=== PATIENT | female | born 1940 | race Caucasian/White ===

== ENCOUNTER 2024-07-26 10:07 | Day surgery (SDC) | payer MEDICARE, OTHER, SELFPAY ==
[2024-07-26] VITALS (29 sets, daily range): BP systolic 130–174; BP diastolic 59–116
[2024-07-26 11:10] LABS: INR 1.01; PT 13.3 Sec (11.4-14.6)
[2024-07-26 11:11] LABS: APTT 25.5 Sec (23.4-35.0)
[2024-07-26 11:34] LABS: Hematocrit 35.8 % (37.0-47.0); Hemoglobin 12.5 g/dL (12.0-16.0); Mean Corp Hgb Conc. 34.9 g/dL (33.0-37.0); Mean Corpuscular Hgb 32.1 pg (27.0-31.0); Mean Platelet Volume 8.6 fL (7.4-10.4); Platelet Count 321 10^3/uL (130-400); Red Blood Cell Count 3.89 10^6/uL (4.20-5.40); White Blood Cell Count 8.8 10^3/uL (4.8-10.8)
[2024-07-26] MEDS: NSS 500 IV (11:35)
[2024-07-26 11:41] LABS: Glucose - Point of Care 148 mg/dl (70-99)
[2024-07-26 11:47] LABS: Blood Urea Nitrogen 21 mg/dl (7-17); Calcium 10.4 mg/dl (8.4-10.2); Carbon Dioxide 23 mmol/L (22-30); Chloride 95 mmol/L (98-107); Estimated Creatinine Clearance 42 ml/min; Glucose 163 mg/dl (70-99); Potassium 3.8 mmol/L (3.5-5.1); Sodium 134 mmol/L (135-145); eGFR > 60.00
--- NOTE | 2024-07-26 12:33 | W.SUR.PREOP ---
Pre-Operative Surgical Note
-
I have examined this patient prior to the performance of the scheduled procedure.
The patient's condition is unchanged from the time of the current History and
Physical and the patient is able to undergo the scheduled procedure.
--- NOTE | 2024-07-26 13:47 | W.SUR.POST ---
Surgical Immediate Post Op
Note
Pre Op Diagnosis: PAD
Post Op Diagnosis: PAD
Procedure Performed: LLE arteriogram, left above and behind knee popliteal artery balloon angioplasty and stent placement x2 overlapping
Primary Surgeon: Dylan
Anesthesia: local and sedation
Estimated Blood Loss: <2cc
Fluids: see anesthesia flowsheet
Drains/Shunts: none
Specimens/Cultures: none
Doppler/Duplex/Angio (Y/N): Y
Complications: none
Operative Findings: palpable pulse left DP
[2024-07-26 14:20] LABS: ALT (SGPT) 19 U/L (0-35); AST (SGOT) 28 U/L (14-36); Albumin 4.8 g/dl (3.5-5.0); Alkaline Phosphatase 158 U/L (38-126); Direct Bilirubin 0.3 mg/dl (0.0-0.4); Total Bilirubin 0.8 mg/dl (0.2-1.3)
[2024-07-26] MEDS: MORPHINE SULFATE 1 MG IV (14:26)
[2024-07-26] MEDS: PLAVIX 300 MG PO (14:34)
[2024-07-26 14:52] LABS: Glucose - Point of Care 141 mg/dl (70-99)
[2024-07-26] MEDS: NSS 1000 IV (14:56)
[2024-07-26 16:46] LABS: Glucose - Point of Care 138 mg/dl (70-99)
--- NOTE | 2024-07-26 17:43 | PTCARENOTE ---
Received patient from vascular lab with at bedside. R groin dressing CDI with no evidence of hematoma. Bilateral DP pulses palpable. SR on the monitor and 96% on room air. Instructed patient on activity restrictions and expected ambulation
time, verbalizes understanding. Patient is expecting discharge at 20:30. No complaints from pt at this time.
--- NOTE | 2024-07-26 21:35 | PTCARENOTE ---
R groin site CDI following ambulation and bedrest duration. Pedal pulses palpable. Ambulated in room as a stand by assist w/ SPC. provided with a copy of discharge instructions. IV and tele pack removed. RN assisted pt getting dressed. D/c'd
with via wheelchair with her SPC
--- NOTE | 2024-07-27 07:41 | OR.RPT ---
Operative Report
Operative Report
PROCEDURE DATE: 07/26/2024
Preoperative diagnosis: Peripheral arterial disease with significant left lower extremity claudication, and likely ischemic rest pain.
Postoperative diagnosis: Same
Procedure:
1. Duplex assisted right common femoral artery cannulation.
2. Aortogram and pelvic angiogram.
3. Left lower extremity arteriogram with third order vessel catheterization of left peroneal artery via right common femoral artery puncture.
4. Primary placement of Cook Zilver PTX drug-eluting stents overlapping in above-knee popliteal artery with 6 mm x 6 cm and 6 mm x 4 cm stents.
5. Right femoral angiogram.
6. Supervision and interpretation.
Surgeon: Dylan
Teacher Education Instructor: None
Complications: None
Anesthesia: Local, sedation
Fluoroscopy:
7.8 min
19 mGy
5.7 Gy.cm2
Indications for procedure:
Severe peripheral arterial disease with nighttime left heel pain, relatively constant. In addition significant claudication. Risk/benefit/alternatives of angiography fully discussed. Patient understood all wish to proceed.
Description of procedure:
Patient was identified, brought to the operating room. Placed on the table in the supine position. After the adequate administration of anesthesia, the patient was prepped and draped in the standard surgical fashion. A standard preoperative
timeout was undertaken and everybody was in agreement with the plan.
The right common femoral artery was accessed with a micropuncture kit under direct duplex ultrasound guidance. A 5 [place] sheath was then advanced over a 0.035 inch wire, and a soliz's hook catheter was advanced into the abdominal aorta.
Aortogram and pelvic angiogram was obtained. Findings as follows:
Infrarenal aorta: Patent distal infrarenal aorta with no significant stenosis. Mild tortuosity noted.
Right common iliac artery: Patent with no significant stenosis.
Right external iliac artery: Patent with no significant stenosis.
Left common iliac artery: Tortuous but patent with no significant stenosis.
Left external iliac artery: Patent with no significant stenosis.
Using a floppy angled hydrophilic wire, the left common femoral artery and proximal SFA were cannulated and the catheter was advanced. Left lower extremity arteriogram was obtained. Findings as follows:
Common femoral artery: Patent with no significant stenosis.
Profunda femoris artery: Patent with no significant stenosis.
Superficial femoral artery: Patent with no significant stenosis.
Popliteal artery: Occlusion in the above-knee popliteal artery for about 1 to 2 cm and then diseased reconstituted flow for another 1 to 2 cm and then hinduism of more normal flow lumen, though albeit with minor stenosis/luminal irregularities
into the below the knee popliteal segment.
Anterior tibial artery: Patent, dominant runoff vessel to the foot. No significant stenosis. Perhaps very mild stenosis at its origin at most.
Tibial peroneal trunk: Severely diseased with severe stenosis
Peroneal artery: Severely diseased with stenoses/occlusions, and minimal flow throughout its entirety.
Posterior tibial artery: Chronically occluded.
At this point I selectively cannulated the superficial femoral artery and exchanged for a Storq wire and then an up and over 6 [place] sheath. The patient was given an appropriate dose of heparin. Next under roadmap assisted guidance, and using a
flopping of hydrophilic wire and a CXI catheter, I traversed the popliteal artery occlusion and stenosis initially with some difficulty but then was able to pass relatively easily. My catheter past also relatively in a straightforward fashion. I
was able to cannulate the peroneal artery and therefore advance my catheter and then exchanged back for a Storq wire. Now, I elected to primarily stent the popliteal lesion above the knee given severity of stenosis, and some concern that there may
have been some thrombotic material in there (chronic thrombus though and I was less worried about embolization). Therefore, at this point I used a Cook Zilver PTX 6 mm x 6 cm stent. This was positioned and then on sheath. When it unsheathed it
did lurch forward slightly (distally). Therefore I felt I needed to place an additional stent to make sure to land in healthy popliteal artery proximally. I therefore overlapped with a 6 mm x 4 cm Cook Zilver PTX stent. The stents were then post
angioplastied with a 5 mm balloon. Completion angiogram demonstrated excellent result with no residual stenosis and brisk flow into the runoff. At this point is very satisfied. I withdrew my sheath to the right external iliac artery. Right
femoral angiogram demonstrated a good puncture in the right common femoral artery. There was a high bifurcation, but the puncture was safe in the common femoral artery over the femoral head. The wires and catheters were withdrawn. The patient was
transported to the recovery room where the sheath was withdrawn and manual pressure was applied. Full hemostasis was achieved.
The patient tolerated procedure well. She had a palpable left DP pulse upon completion.
== END 2024-07-26 21:40 | disposition home or self-care (01) ==
LOC: CATH 10:07
PROVIDERS: ATTENDING PHYSICIAN Surgery Vascular Surgery; FAMILY PHYSICIAN Family Medicine; OTHER PHYSICIAN Internal Medicine Cardiovascular Disease
DX: I70.222 Atherosclerosis of native arteries of extremities with rest pain, left leg (principal); I11.0 Hypertensive heart disease with heart failure; I50.9 Heart failure, unspecified; E11.9 Type 2 diabetes mellitus without complications; Z79.84 Long term (current) use of oral hypoglycemic drugs; Z79.02 Long term (current) use of antithrombotics/antiplatelets
CPT/HCPCS: 37226; C1769; C1894; C1725; C1887; 75625; 75716; 80053; 82248; 82962; 85027; 85610; 85730; 86850; 86900; 86901; 93005; C1874; Q9967

== ENCOUNTER → 2024-08-27 13:36 | Outpatient (REF) | payer MEDICARE, OTHER, SELFPAY | LOC: RAD 13:36 | PROVIDERS: ATTENDING PHYSICIAN Surgery Vascular Surgery; FAMILY PHYSICIAN Family Medicine | DX: I73.9 Peripheral vascular disease, unspecified (principal) | CPT/HCPCS: 93922; 93925 ==

== ENCOUNTER 2025-01-30 05:51 | Inpatient (IN) | payer MEDICARE, OTHER, SELFPAY ==
[2025-01-23 11:14] VITALS: BMI 19.8
[2025-01-23 11:39] LABS: % Basophils 0.3 % (0-2); % Eosinophils 0.7 % (0-6); % Immature Granulocytes 0.3 % (0-0.5); % Lymphocytes 27.8 % (20.5-51.1); % Monocytes 7.8 % (1.7-9.3); % Neutrophils 63.1 % (42.2-75.2); Absolute Eosinophils 0.1 10^3/uL (0-0.7); Absolute Lymphocytes 2.1 10^3/uL (1.2-3.4); Absolute Monocytes 0.6 10^3/uL (0.1-0.6); Absolute Neutrophils 4.8 10^3/uL (1.4-6.5); Hematocrit 36.9 % (37.0-47.0); Hemoglobin 12.4 g/dL (12.0-16.0); Mean Corp Hgb Conc. 33.6 g/dL (33.0-37.0); Mean Corpuscular Hgb 32.6 pg (27.0-31.0); Mean Corpuscular Volume 97.1 fL (81.0-99.0); Nucleated Red Blood Cells % 0 %; Platelet Count 310 10^3/uL (130-400); Red Cell Dist. Width 14.6 % (11.5-14.5); White Blood Cell Count 7.7 10^3/uL (4.8-10.8)
[2025-01-23 11:53] LABS: Blood Urea Nitrogen 23 mg/dl (7-17); Calcium 10.3 mg/dl (8.4-10.2); Carbon Dioxide 31 mmol/L (22-30); Chloride 101 mmol/L (98-107); Estimated Creatinine Clearance 29 ml/min; Glucose 89 mg/dl (70-99); Sodium 139 mmol/L (135-145); eGFR > 60.00
[2025-01-23 12:06] LABS: APTT 26.1 Sec (23.4-35.0); INR 0.93; PT 12.9 Sec (11.4-14.6)
[2025-01-30] VITALS (7 sets, daily range): BP systolic 124–143; BP diastolic 50–71; BMI 19.5
[2025-01-30 07:19] LABS: Glucose - Point of Care 168 mg/dl (70-99)
[2025-01-30] MEDS: BACTROBAN NASAL 1 GRAM NASAL (07:22)
[2025-01-30] MEDS: PERIDEX 0.12% ORAL RINSE 15 ML PO (07:23)
[2025-01-30 09:49] LABS: Glucose - Point of Care 159 mg/dl (70-99)
[2025-01-30 12:02] LABS: Glucose - Point of Care 194 mg/dl (70-99)
[2025-01-30 12:25] LABS: Hematocrit 31.7 % (37.0-47.0); Hemoglobin 10.6 g/dL (12.0-16.0); Mean Corp Hgb Conc. 33.4 g/dL (33.0-37.0); Mean Corpuscular Hgb 32.3 pg (27.0-31.0); Mean Corpuscular Volume 96.6 fL (81.0-99.0); Mean Platelet Volume 8.8 fL (7.4-10.4); Platelet Count 261 10^3/uL (130-400); Red Blood Cell Count 3.28 10^6/uL (4.20-5.40); White Blood Cell Count 10.5 10^3/uL (4.8-10.8)
--- NOTE | 2025-01-30 12:30 | W.SUR.POST ---
Surgical Immediate Post Op
Note
Pre Op Diagnosis: PAD
Post Op Diagnosis: PAD
Procedure Performed: Left SFA to AT bypass with GSV
Primary Surgeon: Dylan
Assist: Edyta AUGUSTE
Anesthesia: General
Estimated Blood Loss: 30cc
Fluids: See anesthesia flow sheet
Drains/Shunts: none
Specimens/Cultures: none
Doppler/Duplex/Angio (Y/N): Y
Complications: none
Operative Findings: Palp DP upon completion
[2025-01-30 12:31] LABS: Blood Urea Nitrogen 16 mg/dl (7-17); Calcium 8.8 mg/dl (8.4-10.2); Carbon Dioxide 25 mmol/L (22-30); Chloride 102 mmol/L (98-107); Estimated Creatinine Clearance 39 ml/min; Glucose 206 mg/dl (70-99); Sodium 134 mmol/L (135-145); eGFR > 60.00
[2025-01-30] MEDS: MORPHINE SULFATE 1 MG IV (12:44)
[2025-01-30] MEDS: DILAUDID 0.25 MG IV (13:12)
[2025-01-30] MEDS: NSS 1000 IV (13:39)
[2025-01-30 14:04] LABS: Glucose - Point of Care 212 mg/dl (70-99)
[2025-01-30] MEDS: NOVOLOG FLEXPEN-MODERATE RESISTANCE 3 UNITS SC (14:44)
--- NOTE | 2025-01-30 14:47 | CON.INTV ---
Consultation
Consultation Request
Date/Time Consultation Requested: 01/30
Date/Time Consultation Performed: 01/30
Reason for Consultation: Critical care
Medical History
-
History of Present Illness:
History obtained from the patient and reviewing hospital records. at bedside as well. 84-year-old female with history of peripheral arterial disease, left lower extremity overlapping stent placement July 2024, hypertension,
hyperlipidemia, diabetes presents with increased left leg pain. Workup revealed occluded popliteal artery stent. She is presently status post left SFA to AT bypass, minimal blood loss. Palpable DP upon complication. Presently patient is without
significant discomfort except mild left foot pain. We are asked to help from critical care standpoint
Patient does not take any antiplatelet therapy, blood thinners as an outpatient
Of note, patient is not a great historian, denied any medical history including diabetes as did at the bedside
.
PMH: Hypertension, hyperlipidemia, peripheral arterial disease with history of left lower extremity popliteal stent 2023, diabetes, macular degeneration, history of heart failure, osteoporosis
Past Medical History
Past Medical History: None (See above)
Past Surgical History: None (See above )
Social History
Tobacco: Non-smoker
Alcohol: None
Drug: None
Personal:
Living: With Family
Employment: Retired
Family History
Family History: Other (Negative for lung disease, lung cancer. Mother with history of head and neck cancer. 2 sons, healthy)
Allergies / Home Medications
Allergies
Allergy/AdvReac Type Severity Reaction Status Date / Time
No Known Allergies Allergy Verified 01/21/25 11:53
Home Medications
�Medication �Instructions �Recorded �Confirmed �Last Taken �Type
Chlorfresh 1 tab PO BID 07/25/24 01/30/25 01/29/25 18:00 History
Fish Oil 1,290 mg PO DAILY@1200 07/25/24 01/30/25 01/29/25 History
Glucamin & Fiber 1 cap PO BID@1200,1800 07/25/24 01/30/25 01/29/25 18:00 History
Probiotic 1 cap PO BID@1200,1800 07/25/24 01/30/25 01/29/25 History
Tri-Iodin 1 cap PO BID@1200,1800 07/25/24 01/30/25 01/29/25 18:00 History
alpha lipoic acid 600 mg tablet 600 mg PO BID 07/25/24 01/30/25 01/29/25 18:00 History
benazepril 20 mg tablet 20 mg PO BID 07/25/24 01/30/25 01/29/25 18:00 History
berberine chloride 500 mg capsule 500 mg PO BID@1200,1800 07/25/24 01/30/25 01/29/25 18:00 History
biotin 5 mg tablet 5 mg PO DAILY 07/25/24 01/30/25 01/29/25 10:00 History
cholecalciferol (vitamin D3) 50 50 mcg PO DAILY ##0 07/25/24 01/30/25 01/29/25 10:00 History
mcg (2,000 unit) capsule (Vitamin
D3)
cinnamon bark extract 1 tab PO BID@1200,1800 07/25/24 01/30/25 01/29/25 18:00 History
clonidine HCl 0.1 mg tablet 0.1 mg PO 07/25/24 01/30/25 01/29/25 22:00 History
coenzyme Q10 100 mg capsule 300 mg PO QPM 07/25/24 01/30/25 01/29/25 History
(CoQ-10)
cyanocobalamin (vitamin B-12) 2,500 mcg sublingual QPM 07/25/24 01/30/25 01/29/25 19:00 History
2,500 mcg sublingual tablet
(Vitamin B-12)
digestive enzymes 1 tab PO BID@1200,1800 07/25/24 01/30/25 01/29/25 18:00 History
diltiazem HCl 300 mg capsule,24 300 mg PO HS 07/25/24 01/30/25 01/29/25 18:00 History
hr,extended release (Tiadylt ER)
empagliflozin 25 mg tablet 25 mg PO QPM 07/25/24 01/30/25 01/29/25 History
(Jardiance)
glipizide 5 mg tablet 5 mg PO BID 07/25/24 01/30/25 01/29/25 18:00 History
hydrochlorothiazide 25 mg tablet 25 mg PO DAILY 07/25/24 01/30/25 01/29/25 10:00 History
magnesium 200 mg tablet 400 mg PO BID@1200,1800 07/25/24 01/30/25 01/29/25 18:00 History
melatonin 3 mg tablet 3 mg PO HS PRN Insomnia 07/25/24 01/30/25 2 Weeks Ago History
~07/12/24
milk thistle 500 mg capsule 1,000 mg PO BID@1200,1800 07/25/24 01/30/25 01/29/25 18:00 History
vitamin A-vitamin C-vit E-min 1 tab PO BID@1200,1800 07/25/24 01/30/25 01/29/25 History
tablet
vitamin K2 1 tab PO DAILY 07/25/24 01/30/25 01/29/25 History
clopidogrel 75 mg tablet 75 mg PO DAILY #90 tabs 07/26/24 01/30/25 01/29/25 10:00 Rx
Bone Collagenzer 2 tab PO BID 01/21/25 01/30/25 01/29/25 18:00 History
Bone Solid 3 cap PO BID 01/21/25 01/30/25 01/29/25 18:00 History
red yeast rice 600 mg tablet 1,200 mg PO QPM 01/21/25 01/30/25 01/29/25 History
Review of Systems
Vitals / Labs / Diagnostic Testing
Vital Signs
Temp Pulse Resp BP Pulse Ox
97.6 F 80 13 126/57 99
01/30/25 13:44 01/30/25 13:15 01/30/25 13:15 01/30/25 13:15 01/30/25 13:15
Lab Data
01/30/25 12:01
01/30/25 12:01
Diagnostic Testing:
Physical Exam
-
HEENT: Normocephalic, Anicteric and Other (Mildly cachectic)
Cardiovascular: S1/S2, Regular Rhythm, Murmur (n), Rub (n) and Peripheral Edema (Extremities warm, left lower extremity erythematous, palpable pulse, left lower extremity bandage in place)
Respiratory: Wheeze (n), Rales (n), Rhonchi (n) and Non-Labored Respirations
GI: Soft, Non Distended and Non Tender
Neurology: Awake, Alert and No Motor Deficits (Moves all extremities)
Skin: Good Color (No skin rash)
General: Comfortable
Assessment
-
84-year-old female with history of peripheral arterial disease, left lower extremity popliteal stent 2023 presents with worsening claudication, leg pain, found to have occluded stent, status post left SFA to AT bypass 01/30 without complication. We
are asked to help from critical care standpoint
S/p LLE SFA bypass
Occluded popliteal stent, increased claudication
Peripheral arterial disease with history of popliteal overlapping stent 2023
Anemia, hemoglobin 10.6
Hyperglycemia
Mild hyponatremia
Mild pulm hypertension, PA pressure 35
Conditions present prior to admission
Hypertension/hyperlipidemia
History of diabetes
Osteoporosis
Left hip repair 2010
Left femur repair 2004
History of cholecystectomy
Plan/recommendations
At this time, patient is critically ill but remains comfortable
Adequate blood pressure, A-line in place
Chest exam is clear
Distal pulses intact, left lower extremity warm
Incision to left lower extremity intact, no obvious bleeding
Preoperative EKG with sinus bradycardia at 56
Reviewed preoperative cardiology clearance correspondence
CXR 01/23/2025 without acute findings
Moving forward
Continue with management per vascular surgery
Pain is controlled at this time
Distal pulses intact, vascular checks
Reviewed prior cardiology correspondence. Sinus bradycardia preoperative EKG
Preoperative echocardiogram with normal biventricular function, mild MR, RV systolic pressure 35
Coronary catheterization 2020 normal
Follow blood sugars
Resume outpatient regimen as able
Antiplatelet therapy per vascular surgery
DVT prophylaxis: On subcutaneous heparin every 12hr
Reviewed with critical care nursing, at bedside
We will follow
TCCT 31 min
--- NOTE | 2025-01-30 15:00 | PTCARENOTE ---
Received patient to room 3358. patient AAOx3, ALATNA, soft spoken, can move all extremities. she is on simple mask for hyperoxygenation protocol. 100%. Patient is sinus rhythm on monitor. she is ordered clear liquid diet. patient has dawson for
urine, left leg has 4 dressings, post op all clean dry and intact. Patient's at bedside, oriented to the room.
--- NOTE | 2025-01-30 15:48 | OR.RPT ---
Operative Report
Operative Report
PROCEDURE DATE: 01/30/2025
Preoperative diagnosis: Chronic limb threatening ischemia left lower extremity
Postoperative diagnosis: Same
Procedure: Left distal superficial femoral artery to anterior tibial artery bypass with ipsilateral nonreversed greater saphenous vein conduit.
Surgeon: Dylan
Switch Technician: SARITHA Lan, required for all aspects of procedure including assistance with traction/countertraction, following of suture line, assistance with closure.
Complications: None
Anesthesia: General
Indications for procedure:
Chronic limb threatening ischemia with severe ischemic rest pain left foot as well as nonhealing fissure at the base of the heel. She had prior undergone angioplasty/stenting but stents occluded in relatively short order. Therefore we discussed a
bypass at this point. Risk/benefit/alternatives also discussed. Patient understood all wished to proceed.
Description of procedure:
Patient was identified brought to the operating room placed on the table in supine position. After the adequate administration of anesthesia she was prepped and draped in the standard surgical fashion. A standard preoperative timeout was
undertaken and everybody was in agreement the plan. A longitudinal incision was made in the medial distal thigh that was carried through the skin subcutaneous tissue. The crural fascia layer was divided with the electrocautery. I then identified
the sartorius muscle which was reflected posteriorly. The tougher deeper fascia was incised and I was able to dissect carefully the superficial femoral artery. This was the distal superficial femoral artery. It was soft here. It was pulsatile.
I felt this would be a good inflow source. I therefore then circumferentially dissected it for a segment of about 4 to 5 cm. Vesseloops were passed around it proximally and distally. Any branches were ligated with silk ties and divided.
Next, I turned my attention below the knee. On the anterior lateral aspect of the proximal calf, I made a longitudinal incision. This was carried through skin to be tames tissue. Using the electrocautery I dissected into the crural fascia layer.
I then bluntly the muscles of the anterior compartment and then inserted a self-retaining retractor. At the base between the 2 muscle bellies, identified the anterior tibial vein and then the artery. A vein branch was dissected off the
artery and ligated between silk ties and divided. The artery was noted to be soft and had a good Doppler signal. Careful circumferential dissection was performed in the proximal and distal extents of the dissected artery. Vesseloops were gently
passed around it at those junctures. Care was taken to not place any hemostatic or anything on the vessel loop so as to avoid any undue tension on the artery. Of note the artery was soft and of reasonable size for bypass.
At this point I made a longitudinal incision in the proximal slightly medial thigh where I had marked the greater saphenous vein course. This was carried through skin subcutaneous tissue with the electrocautery. Through the saphenous sheath and
then identified the greater saphenous vein. I then continued to dissect distally and proximally mobilizing the vein out of its bed by ligating any branches between silk ties and clips and then dividing them. I then made a separate skip incision to
continue to dissect the mid to distal thigh portion of the vein. Once the vein was fully mobilized and I had a suitable segment I then ligated the vein distally with a heavy silk tie and a clip. I then transected it. Proximally I used a silk
suture ligature and a clip and then divided the vein distal to the ligature. The vein was now prepped. It was distended and distended very well under heparinized saline. I used a [place] valvulotome to valvulotomize the vein. I elected to maintain
the vein in a nonreversed fashion.
Now in order to tunnel of the vein bypass I felt that the best way to tunnel would be to pass laterally from the artery and then subcutaneously down to the anterior tibial artery exposure site. Therefore I made a small counterincision laterally in
the distal thigh (posterior laterally). This was carried through skin subcutaneous tissue. I then dissected between the biceps femoris tendon and the iliotibial tract. This allowed me through which I could tunnel directly to the exposed SFA site.
I felt that this would be a better direction for the vein graft to go as it was more natural of a course (if I had elected to bring it out medially from the medial incision and then anterior laterally around the knee, it would have been rather
kinked based on the way the artery was rather posterior and tethered by the tendon). I now passed an umbilical tape from this lateral incision to the medial incision site. I then used the aortic clamp to create a subcutaneous tunnel between the
small counterincision laterally at the distal thigh to the proximal calf lateral incision. Inability was passed here as well.
Now that I had completed tunneling, I gave the patient an appropriate dose of heparin. Once this had circulated for 3 minutes I elected to ligate the SFA distally in my field (had mobilized about 4 or 5 cm of it so I ligated the distalmost aspect).
The artery was occluded anyway beyond here (popliteal stent completely occluded and there were really no collaterals emanating from just proximal to there). I then clamped the SFA more proximally and then transected it just proximal to my
ligature. Therefore I now had about 4 cm of SFA that was nicely open and could be used as the proximal aspect of the conduit. A small bit of plaque was easily endarterectomized out and feathered out very nicely. I now had a very clean end of the
SFA. I then brought my vein onto the field again maintaining it in a nonreversed fashion. I spatulated the vein and the artery slightly. I then sewed an end-to-end spatulated anastomosis using a running 6-0 Prolene suture. I completed and tied
down my suture line. Next I released flow in the SFA after placing a bulldog clamp on the distal vein graft. There is excellent pulsatile flow through the vein graft. I ran the valvulotome 1 more time to confirm no residual valves. I now marked
the anterior surface under distention to avoid any kinking or twisting and then passed it through the tunnels that I created. Therefore the vein was tunneled laterally and then distally subcutaneously. I now clamped the SFA again. I then
reexposed the anterior tibial artery by replacing the self-retaining retractors. Yasargil clips were applied to the anterior tibial artery proximally distally. I then made an arteriotomy with a Mcminn blade and extended using a micro Gilliland
scissor. There was a nicely patent artery with reasonable/normal monreal. I therefore then spatulated the distal aspect of the vein after trimming it and then sewed an end-to-side anastomosis with a reasonable/long ratliff onto the anterior tibial
artery. This was done with a running 7-0 Prolene suture. Prior to completing and tying down my suture line I backbled the [place] artery and then flushed out the vein graft. I then irrigated heparinized saline. Next I remove my Yasargil clips and
then released the clamp on the SFA. There is now excellent pulsatile flow in the vein graft and an excellent pulse easily palpable in the anterior tibial artery distal to the anastomosis. Doppler confirmed an excellent graft dependent Doppler
signal in the distal anterior tibial artery as well as the dorsalis pedis artery on the foot. In fact I could palpate an easily palpable 2+ DP pulse now on the foot. At this point I was very satisfied.
All surgical sites were carefully inspected. Anastomotic sites were irrigated. Hemostasis was fully achieved and confirmed. All incision sites were then fully irrigated. We then closed the arterial exposure sites with layers of Vicryl suture
followed by 4-0 Monocryl subcuticular running stitch. The saphenectomy sites were similarly closed with 3-0 Vicryl running suture followed by 4-0 Monocryl subcuticular running stitch. Dermabond was applied to all sites. Dressings were applied.
The patient tolerated the procedure well. All sponge, needle, instrument counts were correct at the end of the case. The patient was transported to recovery room in stable/good condition.
[2025-01-30] MEDS: VITAMIN B-12 1000 MCG PO (17:24)
[2025-01-30] MEDS: FARXIGA 10 MG PO (17:24)
[2025-01-30 17:26] LABS: Glucose - Point of Care 254 mg/dl (70-99)
[2025-01-30] MEDS: NOVOLOG FLEXPEN-MODERATE RESISTANCE 5 UNITS SC (17:27)
[2025-01-30] MEDS: MAGNESIUM OXIDE 500 MG PO (17:36)
[2025-01-30] MEDS: VISBIOME 1 CAP PO (17:36)
[2025-01-30] MEDS: GLUCOTROL 5 MG PO (17:36)
[2025-01-30] MEDS: ZESTRIL 20 MG PO (20:21)
[2025-01-30] MEDS: ROXICODONE 5 MG PO (20:21)
[2025-01-30] MEDS: HEPARIN 5000 UNITS SC (20:26)
--- NOTE | 2025-01-30 20:30 | PTCARENOTE ---
Resumed care of pt this evening. Received pt on IV fluids infusing at 80mls via peripheral IV site per order. Pt has a right radial A-line that is in place, transducing, and is zeroed to atmospheric pressure. Pt is afebrile. Pt is A&Ox3 w/ a flat
affect. Pt is able to move all 4 extremities and can make needs known. Pt is NSR on tele monitor w/ PVCs, apical is regular. Pt has trace edema on left lower operative extremity. Pt has b/l palpable PT and DP pulses. Operative left leg is warm to
palpation and pt denies loss of sensation. Pt is also able to raise both legs and wiggle toes. Pt on 2L of O2 satting at 98% pulse ox. On auscultation pt's lungs sound diminished at the bases bilaterally but otherwise clear. Pt's abdomen is round w/
hypoactive BS. Pt has dawson in place draining yellow colored urine. Pt has 4 surgical aquacell dressings on left upper leg (2) and left lower leg (2). Surgical dressings are C/D/I.
[2025-01-30] MEDS: CATAPRES 0.1 MG PO (21:40)
[2025-01-30] MEDS: CARDIZEM CD 300 MG PO (21:40)
[2025-01-30 21:55] LABS: Glucose - Point of Care 141 mg/dl (70-99)
[2025-01-31] VITALS (17 sets, daily range): BP systolic 102–145; BP diastolic 37–114; PULSE 72; O2SAT 95; BMI 19.6
[2025-01-31] MEDS: NSS 1000 IV (00:34)
[2025-01-31] MEDS: DILAUDID 0.5 MG IV (00:34)
--- NOTE | 2025-01-31 00:45 | PTCARENOTE ---
Upon reassessment neurovascular checks remain unchanged. Pt is afebrile. Pt is c/o left leg pain, 7 out of 10. PRN dose of dilaudid administered by this RN per order.
[2025-01-31 03:36] LABS: Hemoglobin 9.9 g/dL (12.0-16.0); Mean Corp Hgb Conc. 34.1 g/dL (33.0-37.0); Mean Corpuscular Hgb 32.8 pg (27.0-31.0); Mean Platelet Volume 8.9 fL (7.4-10.4); Platelet Count 246 10^3/uL (130-400); Red Blood Cell Count 3.02 10^6/uL (4.20-5.40); White Blood Cell Count 8.5 10^3/uL (4.8-10.8)
[2025-01-31 03:45] LABS: INR 0.95; PT 13.2 Sec (11.4-14.6)
[2025-01-31 03:47] LABS: APTT 28.3 Sec (23.4-35.0)
[2025-01-31 03:59] LABS: Blood Urea Nitrogen 11 mg/dl (7-17); Calcium 9.3 mg/dl (8.4-10.2); Carbon Dioxide 28 mmol/L (22-30); Chloride 105 mmol/L (98-107); Estimated Creatinine Clearance 44 ml/min; Glucose 137 mg/dl (70-99); Potassium 4.2 mmol/L (3.5-5.1); Sodium 137 mmol/L (135-145); eGFR > 60.00
--- NOTE | 2025-01-31 04:30 | PTCARENOTE ---
Pt resting comfortably at this time. Neurovascular checks unchanged. Pt remains afebrile.
[2025-01-31 07:30] LABS: Glucose - Point of Care 122 mg/dl (70-99)
[2025-01-31] MEDS: NOVOLOG FLEXPEN-MODERATE RESISTANCE SC (07:31)
--- NOTE | 2025-01-31 07:35 | W.PN.VS ---
Addendum entered and electronically signed by Hay Richardson MD 01/31/25 09:44:
Seen and examined with BIOMETRICS INSTRUCTOR. Agree with findings as noted below. Patient without significant complaints. Left thigh and calf dressings all clean dry and intact. Thigh and calf are very soft. No hematomas. Easily palpable 2+ graft pulse and
easily palpable 2+ DP pulse on the foot. Plan/as discussed and noted below.
Original Note:
Today's Communication / Plan
-
Patient seen and examined at bedside with Dr. Hay Richardson, below plan reviewed with attending.
Assessment/Plan
-
Assessment: 84 year old female POD#1 Left distal superficial femoral artery to anterior tibial artery bypass with ipsilateral nonreversed greater saphenous vein conduit.
Plan:
Discontinue IV fluids
Discontinue arterial line
OOB to chair with progression to ambulation as tolerated
PT/OT
Discontinue dawson catheter
Continue neurovascular checks
Subjective Data
-
Date of Service: January 31, 2025
Patient seen and examined at bedside, reports well managed post operative pain. Tolerating PO diet. Denies nausea, vomitting, fever, and chills.
Objective Data
-
Vital Signs
Temp Pulse Resp BP Pulse Ox
97.9 F 59 13 134/43 97
01/31/25 07:02 01/31/25 06:45 01/31/25 06:45 01/30/25 21:40 01/31/25 06:45
Intake and Output
01/30/25 01/31/25 02/01/25
06:59 06:59 06:59
Intake Total 2420 / 2420
Output Total 3725 / 3725
Balance -1305 / -1305
Intake:
Oral fluids 960 / 960
IV fluids (Total) 1460 / 1460
NSS 100 / 100
Nss 1,000 ml @ 80 mls/hr IV . 1360 / 1360
[id number] [facility] Rx#:[id number]
Output:
Urine, Dawson 3725 / 3725
Lab Results
01/31/25 03:13
01/31/25 03:13
Calcium 9.3 mg/dl (8.4-10.2) 01/31/25 03:13
Physical Exam
-
NAD, resting in bed comfortably
No tachycardia
No dyspnea on room air
ABD non distended
LLE dressing CDI, LLE trace edema, +2 palpable DP pulse
Dawson draining clear yellow urine
--- NOTE | 2025-01-31 07:44 | W.PN.INTV ---
Today's Communication / Plan
Recommendations
Out of bed to chair, ambulate
A-line, Gordon discontinued
Continue antiplatelet therapy per vascular surgery
Possible transfer out of ICU later today. We will sign off once transferred. Please call with questions
Assessment
-
84-year-old female with history of peripheral arterial disease, left lower extremity popliteal stent 2023 presents with worsening claudication, leg pain, found to have occluded stent, status post left SFA to AT bypass 01/30 without complication. We
are asked to help from critical care standpoint
S/p LLE SFA bypass
Occluded popliteal stent, increased claudication
Peripheral arterial disease with history of popliteal overlapping stent 2023
Anemia, hemoglobin 10.6
Hyperglycemia
Mild hyponatremia
Mild pulm hypertension, PA pressure 35
Conditions present prior to admission
Hypertension/hyperlipidemia
History of diabetes
Osteoporosis
Left hip repair 2010
Left femur repair 2004
History of cholecystectomy
Plan/recommendations
At this time, patient appears to be doing well
Without complaints
Minimal left leg pain
Lower extremity warm, pulses intact
Chest exam is clear
Preoperative EKG with sinus bradycardia at 56
Reviewed preoperative cardiology clearance correspondence
CXR 01/23/2025 without acute findings
Moving forward
Continue with management per vascular surgery
Pain is controlled at this time
Distal pulses intact, vascular checks
Out of bed to chair, discontinue A-line, discontinue Gordon
Reviewed prior cardiology correspondence. Sinus bradycardia preoperative EKG
Preoperative echocardiogram with normal biventricular function, mild MR, RV systolic pressure 35
Coronary catheterization 2020 normal
Follow blood sugars
Resume outpatient regimen as able
Antiplatelet therapy per vascular surgery
DVT prophylaxis: On subcutaneous heparin every 12hr
Reviewed with critical care nursing, respiratory care, pharmacy
Possible transfer out of ICU later today depending on how she does
Once transferred, we will sign off. Please call with questions
Subjective Dataa
Subjective Data
Date of Service:
Date of Service: January 31, 2025
Subjective:
Patient is without complaints. Denies chest pain, nausea, abdominal pain, shortness of breath. Mild leg pain overnight but resolved at this time. Conversant and appears to be in good spirits
Objective Data
Data Reviewed
Vital Signs / I&O / Oxygen:
Vital Signs
Temp Pulse Resp BP Pulse Ox
97.9 F 59 13 134/43 97
01/31/25 07:02 01/31/25 06:45 01/31/25 06:45 01/30/25 21:40 01/31/25 06:45
Intake and Output
01/30/25 01/31/25 02/01/25
06:59 06:59 06:59
Intake Total 2420 / 2420
Output Total 3725 / 3725
Balance -1305 / -1305
SaO2 97
Nasal Cannula flow liters per 2
minute
Physical Exam
General: Comfortable
HEENT: Normocephalic and Anicteric
Cardiovascular: S1-S2, Regular Rhythm, Murmur (n), Rub (n), Peripheral Edema (Trace) and Other (Warm extremities, mild left foot erythema, pulses intact. Left lower extremity incision intact)
Respiratory: Clear, Wheeze (n), Crackles (n), Rhonchi (n) and Non-Labored Respirations
GI: Soft, Non Distended and Non Tender
Neurology: Awake, Alert and No Motor Deficits (Moves all extremities, cranial nerves grossly intact)
Skin: Cyanosis (n), Jaundice (n) and Rash (Mild erythema left foot)
Labs/Micro/Reports
Lab Data
01/31/25 03:13
01/31/25 03:13
Laboratory Results
01/31/25
03:13
PT 13.2
INR 0.95
APTT 28.3
[2025-01-31] MEDS: ZESTRIL 20 MG PO ×2 (07:51→21:45)
[2025-01-31] MEDS: PLAVIX 75 MG PO (07:51)
[2025-01-31] MEDS: VITAMIN D3 (cholecalciferol) 50 MCG PO (07:51)
[2025-01-31] MEDS: ORETIC 25 MG PO (07:51)
[2025-01-31] MEDS: GLUCOTROL 5 MG PO ×2 (07:52→16:52)
[2025-01-31] MEDS: HEPARIN 5000 UNITS SC ×2 (07:52→21:44)
[2025-01-31 09:03] LABS: Glycohemoglobin (HgbA1c) 6.6 % (4.0-5.6)
[2025-01-31] MEDS: ROXICODONE 5 MG PO (09:17)
--- NOTE | 2025-01-31 10:49 | PTCARENOTE ---
report received, assessment per work list. vascular team in, orders received. IVF capped, dawson and arterial line removed, medicated with roseanna per prn order. oob to chair with assist of one and walker. call paredes in reach. dressings intact. palpable
pulses
[2025-01-31 12:23] LABS: Glucose - Point of Care 220 mg/dl (70-99)
[2025-01-31] MEDS: MAGNESIUM OXIDE 500 MG PO ×2 (12:33→17:59)
[2025-01-31] MEDS: NOVOLOG FLEXPEN-MODERATE RESISTANCE 3 UNITS SC (12:33)
[2025-01-31] MEDS: VISBIOME 1 CAP PO ×2 (12:33→17:59)
--- NOTE | 2025-01-31 13:30 | PTCARENOTE ---
remains oob to chair, reassessed. pulses unchanged
--- NOTE | 2025-01-31 14:43 | CM ---
CM following re: discharge planning.
Reviewed pt's chart,met with pt.
Pt is an 84 year old female, admitted with primary dx of POD#1 Left distal superficial femoral artery to anterior tibial artery bypass.
Pt reports she lives with in [facility], 11 steps to enter, has 2 supportive sons. Pt reports she uses a cane mostly, has a walker and w/c, known to [facility]. Pt expressed her desire to return back home with [facility] if recommended.
PT and OT will evaluate the pt to determine a level of care at discharge.
PCP: Rajni Luque
pharmacy: [facility].
D/C plan: home with [facility] id recommended. Spouse to transport at discharge.
CM will follow with discharge plan updates as hospitalization progresses
--- NOTE | 2025-01-31 16:17 | PTCARENOTE ---
reassessed. patient deneis pain, pulses unchanged. voiding adequate amounts yellow urine in bedside commode. forgetful at times. call paredes in reach
[2025-01-31] MEDS: TYLENOL 650 MG PO (16:52)
[2025-01-31] MEDS: NOVOLOG FLEXPEN-MODERATE RESISTANCE 5 UNITS SC (16:52)
[2025-01-31 17:02] LABS: Glucose - Point of Care 294 mg/dl (70-99)
--- NOTE | 2025-01-31 17:08 | PTCARENOTE ---
Addendum entered by Gina Valenzuela RN 01/31/25 17:40:
TT to [facility] vascular team. awaiting response/orders.reviewed higher glucose with optometric technician and pharmacist
Original Note:
mbualted with PT, accucheck elevated. patient requesting miralax. tiger text to [facility] to update. orders pending
[2025-01-31] MEDS: FARXIGA 10 MG PO (17:39)
[2025-01-31] MEDS: VITAMIN B-12 1000 MCG PO (17:39)
--- NOTE | 2025-01-31 20:30 | PTCARENOTE ---
Neurovascular checks unchanged.
[2025-01-31] MEDS: CARDIZEM CD 300 MG PO (21:46)
[2025-01-31] MEDS: CATAPRES 0.1 MG PO (21:46)
[2025-01-31] MEDS: NOVOLOG FLEXPEN 7 UNITS SC (23:09)
[2025-02-01] VITALS (11 sets, daily range): BP systolic 105–157; BP diastolic 46–63; PULSE 66; O2SAT 97; BMI 19.4
[2025-02-01 04:40] LABS: Hematocrit 30.3 % (37.0-47.0); Hemoglobin 10.3 g/dL (12.0-16.0); Mean Corpuscular Hgb 32.9 pg (27.0-31.0); Mean Corpuscular Volume 96.8 fL (81.0-99.0); Mean Platelet Volume 9.3 fL (7.4-10.4); Platelet Count 256 10^3/uL (130-400); Red Blood Cell Count 3.13 10^6/uL (4.20-5.40); Red Cell Dist. Width 14.5 % (11.5-14.5)
[2025-02-01 04:57] LABS: Blood Urea Nitrogen 19 mg/dl (7-17); Calcium 9.6 mg/dl (8.4-10.2); Carbon Dioxide 31 mmol/L (22-30); Chloride 103 mmol/L (98-107); Estimated Creatinine Clearance 38 ml/min; Glucose 85 mg/dl (70-99); Sodium 137 mmol/L (135-145); eGFR > 60.00
--- NOTE | 2025-02-01 07:53 | W.PN.INTV ---
Today's Communication / Plan
Recommendations
Out of bed to chair, ambulate
Continue antiplatelet therapy per vascular surgery
Follow blood sugars. Diabetic AREA SECRETARY consulted per vascular
Ongoing disposition efforts noted, transfer out of ICU. We will sign off. Please call with questions
Assessment
-
84-year-old female with history of peripheral arterial disease, left lower extremity popliteal stent 2023 presents with worsening claudication, leg pain, found to have occluded stent, status post left SFA to AT bypass 01/30 without complication. We
are asked to help from critical care standpoint
S/p LLE SFA bypass
Occluded popliteal stent, increased claudication
Peripheral arterial disease with history of popliteal overlapping stent 2023
Anemia, hemoglobin 10.6
Hyperglycemia
Mild hyponatremia
Mild pulm hypertension, PA pressure 35
Conditions present prior to admission
Hypertension/hyperlipidemia
History of diabetes
Osteoporosis
Left hip repair 2010
Left femur repair 2004
History of cholecystectomy
Plan/recommendations
At this time, patient appears to be doing well
Without complaints
Minimal left leg pain
Lower extremity warm, pulses intact
Chest exam is clear
Preoperative EKG with sinus bradycardia at 56
Reviewed preoperative cardiology clearance correspondence
CXR 01/23/2025 without acute findings
Mildly elevated blood sugars noted, improved this morning
Moving forward
Continue with management per vascular surgery
Pain is controlled at this time
Distal pulses intact, vascular checks
Out of bed to chair
Reviewed prior cardiology correspondence. Sinus bradycardia preoperative EKG
Preoperative echocardiogram with normal biventricular function, mild MR, RV systolic pressure 35
Coronary catheterization 2019 normal
Follow blood sugars
Resume outpatient regimen as able
Diabetic AREA SECRETARY following
Antiplatelet therapy per vascular surgery
DVT prophylaxis: On subcutaneous heparin every 12hr
Reviewed with critical care nursing, respiratory care, pharmacy
Okay for transfer out of ICU. Ongoing disposition efforts per vascular surgery
We will sign off. Please call with questions
Subjective Dataa
Subjective Data
Date of Service:
Date of Service: February 01, 2025
Subjective:
The patient is without complaints. She denies chest pain, shortness of breath. She denies nausea. She feels like pain is controlled. Elevated blood sugars noted, improved this morning.
Objective Data
Data Reviewed
Vital Signs / I&O / Oxygen:
Vital Signs
Temp Pulse Resp BP Pulse Ox
98.1 F 55 14 124/54 94
01/31/25 23:14 02/01/25 07:00 02/01/25 07:00 02/01/25 06:00 02/01/25 07:00
Intake and Output
01/31/25 02/01/25 02/02/25
06:59 06:59 06:59
Intake Total 2420 / 2500 2560 / 2560
Output Total 3725 / 3725 4320 / 4320
Balance -1305 / -1225 -1760 / -1760
SaO2 94
Nasal Cannula flow liters per 2
minute
Physical Exam
General: Comfortable
HEENT: Normocephalic and Anicteric
Cardiovascular: S1-S2, Regular Rhythm, Murmur (n), Rub (n), Peripheral Edema (Trace) and Other (Warm extremities, mild left foot erythema, pulses intact. Left lower extremity incision intact)
Respiratory: Clear, Wheeze (n), Crackles (n), Rhonchi (n) and Non-Labored Respirations
GI: Soft, Non Distended and Non Tender
Neurology: Awake, Alert and No Motor Deficits (Moves all extremities, cranial nerves grossly intact)
Skin: Cyanosis (n), Jaundice (n) and Rash (Mild erythema left foot)
Labs/Micro/Reports
Lab Data
02/01/25 04:19
02/01/25 04:19
--- NOTE | 2025-02-01 08:31 | W.PN.VS ---
Addendum entered and electronically signed by Hay Richardson MD 02/01/25 16:17:
Seen and examined with SARITHA Lan earlier this a.m. This is a late entry. Agree with findings as noted below. Left lower extremity incisions all clean dry and intact. Thigh and calf soft with no hematomas. Easily palpable graft pulse and 2+
palpable DP pulse on the foot. Plan/as discussed and noted below.
Original Note:
Today's Communication / Plan
-
Seen and assessed with Dr. Richardson
Assessment/Plan
-
Assessment: 84 year old female POD#2 Left distal superficial femoral artery to anterior tibial artery bypass with ipsilateral nonreversed greater saphenous vein conduit.
Plan:
Case management for discharge planning-Home health
Ambulation as tolerated
PT/OT
Downgrade is needed
Subjective Data
-
Date of Service: February 01, 2025
Patient seen bedside this a.m. with Dr. Richardson. No events overnight. Patient states that she has been concerned with her high blood sugar readings. Adjustments were made yesterday and this morning's reading is 85.
Objective Data
-
Vital Signs
Temp Pulse Resp BP Pulse Ox
98.1 F 55 14 124/54 94
01/31/25 23:14 02/01/25 07:00 02/01/25 07:00 02/01/25 06:00 02/01/25 07:00
Intake and Output
01/31/25 02/01/25 02/02/25
06:59 06:59 06:59
Intake Total 2420 / 2500 2560 / 2560
Output Total 3725 / 3725 4320 / 4320
Balance -1305 / -1225 -1760 / -1760
Intake:
Oral fluids 960 / 960 2400 / 2400
IV fluids (Total) 1460 / 1540 160 / 160
NSS 100 / 100
Nss 1,000 ml @ 80 mls/hr IV . 1360 / 1440 160 / 160
[id number] [facility] Rx#:[id number]
Output:
Urine, Gordon 3725 / 3725 575 / 575
Urine, Voided 3745 / 3745
Lab Results
02/01/25 04:19
02/01/25 04:19
Calcium 9.6 mg/dl (8.4-10.2) 02/01/25 04:19
Physical Exam
-
NAD, resting in bed comfortably
No tachycardia
No dyspnea on room air
ABD non distended
LLE dressing CDI, LLE trace edema, +2 palpable DP pulse
[2025-02-01] MEDS: TYLENOL 650 MG PO ×2 (08:35→22:32)
[2025-02-01] MEDS: MIRALAX 17 GRAMS PO (08:35)
[2025-02-01] MEDS: PLAVIX 75 MG PO (08:36)
[2025-02-01] MEDS: ZESTRIL 20 MG PO ×2 (08:36→20:33)
[2025-02-01] MEDS: HEPARIN 5000 UNITS SC ×2 (08:36→20:34)
[2025-02-01] MEDS: GLUCOTROL 5 MG PO ×2 (08:36→16:57)
[2025-02-01] MEDS: VITAMIN D3 (cholecalciferol) 50 MCG PO (08:36)
[2025-02-01 08:39] LABS: Glucose - Point of Care 273 mg/dl (70-99)
[2025-02-01 08:39] LABS: Glucose - Point of Care 95 mg/dl (70-99)
[2025-02-01] MEDS: ORETIC 25 MG PO (08:50)
[2025-02-01] MEDS: FLUSH (NSS) 1 FLUSH IV (08:51)
--- NOTE | 2025-02-01 09:03 | PTCARENOTE ---
report received, assessments per work list. patient c/o left leg pain, medicated with tylenol. palpable distal pulses, feet war, dressing removed by vascular. incisions approximated, bruising. no drainage. lungs diminished@bases, encouraged to cough
and deep breath. oob to commode then chair. call paredes in reach
[2025-02-01] MEDS: NOVOLOG FLEXPEN-HIGH RESISTANCE SC (09:30)
--- NOTE | 2025-02-01 11:33 | CM ---
CM following re: discharge planning.
Reviewed pt's chart,met with pt.
Pt is POD#2 Left distal superficial femoral artery to anterior tibial artery bypass, continue supportive care.
Pt lives with in [facility], 11 steps to enter, has 2 supportive sons. Pt reports she uses a cane mostly, has a walker and w/c, known to [facility]. Pt expressed her desire to return back home with [facility] if recommended.
PT and OT evaluations noted - home PT/OT recommended. Pt is aware, expressed her agreement. A referral to [facility] made.
Please fax discharge instructions to [facility] at [phone]
IMM reviewed, placed on chart, pt has a copy.
D/C plan: home with [facility] and family support. Spouse to transport at discharge.
CM will follow with discharge plan updates as needed.
[2025-02-01] MEDS: VISBIOME 1 CAP PO ×2 (11:38→17:16)
[2025-02-01] MEDS: MAGNESIUM OXIDE 500 MG PO ×2 (11:38→17:16)
[2025-02-01] MEDS: NOVOLOG FLEXPEN-HIGH RESISTANCE 4 UNITS SC (11:43)
[2025-02-01 11:54] LABS: Glucose - Point of Care 216 mg/dl (70-99)
--- NOTE | 2025-02-01 12:01 | PTCARENOTE ---
remains oob to chair. ambulating in room and to bathroom with assist.
--- NOTE | 2025-02-01 12:20 | PN.DE.MGMTRT ---
Insulin Management
- -
02/01/2025: Diabetes Management Consult
84-year-old female with PMH: PAD, LLE popliteal stent 2023 and T2DM. Patient p/w worsening claudication, leg pain, found to have occluded stent. Pt is now POD # 2 s/p left SFA to AT bypass w/o complication.
Pt is awake, alert, oriented, very pleasant, resting in bed, offers no complaints, able to discuss diabetes outpatient regimen
Reports that her PCP manages her Diabetes care and that she was taking Glipizide 5mg BID and Jardiance 25mg daily. Patient reports recurrent episodes of sx of hypoglycemia, states she becomes symptomatic when her blood sugar drops to the 80's which
happens quite often at home.
She has a working glucose monitor at home and has been testing her blood sugars once a day. A1C is 6.6%, Cr 0.7, eGFR >60
Of note, pt was treated with IV steroids intra op, which may have contributed to hyperglycemia. Her blood sugar trended up to 273 @ HS, pt received 7 units of aspart and was started on High corrective insulin with meals. Her FBG was 85(V), 95 POC
this morning but pre-lunch glucose was 217-->4 units of aspart.
No indication for stringent glucose control considering advanced age, goal A1C of 6.6% and low normal FBG in setting of sulfonylurea use.
The hyperglycemia is likely situational or medication induced. Will change corrective from high to moderate to reduce risk of hypoglycemia.
Explained to pt in detail that her blood glucose will start trending down in the next 24 hrs as she recovers post-operatively.
Will cont to follow.
Diabetes History
- -
Type of Diabetes: 2
Pre-Admission Diabetes Regimen
02/01/25
04:19
Creatinine 0.7
Lab Results
Hemoglobin A1c 6.6 % (4.0-5.6) H 01/31/25 03:13
Insulin Pump Settings
IP Diabetes Regimen
01/31/25 01/31/2501/31/25
12:21 16:51 21:47
Glucose
POC Glucose 220 H 294 H 273 H
02/01/25 02/01/25 02/01/25
04:19 08:28 11:43
Glucose 85
POC Glucose 95 216 H
Meal type: Breakfast
Meal type: Dinner
Meal type: Lunch
Amount consumed: 100%
Amount consumed: 100%
Amount consumed: 100%
Patient Education
--- NOTE | 2025-02-01 14:47 | PTCARENOTE ---
report called to [facility] RN. to transport by PCT/wheelchair to [address] [place] [address] with all belongings
--- NOTE | 2025-02-01 15:22 | PTCARENOTE ---
Received patient from ICU at 1510. Patient AAOx3, ambulated to chair. Patient has no c/o pain at present, Left leg incisions are approximated, surgical glue intact, surrounding skin ecchymotic. +PP, +1 edema. Spouse at bedside.
[2025-02-01 16:38] LABS: Glucose - Point of Care 183 mg/dl (70-99)
[2025-02-01] MEDS: VITAMIN B-12 1000 MCG PO (17:13)
[2025-02-01] MEDS: FARXIGA 10 MG PO (17:13)
[2025-02-01] MEDS: NOVOLOG FLEXPEN-MODERATE RESISTANCE 1 UNITS SC (17:17)
[2025-02-01 21:47] LABS: Glucose - Point of Care 158 mg/dl (70-99)
[2025-02-01] MEDS: CARDIZEM CD 300 MG PO (22:01)
[2025-02-01] MEDS: CATAPRES 0.1 MG PO (22:02)
[2025-02-01] MEDS: ROXICODONE 5 MG PO (22:33)
[2025-02-02 03:31] VITALS: BP 117/56
[2025-02-02 07:00] VITALS: BP 116/52
--- NOTE | 2025-02-02 08:00 | W.PN.VS ---
Today's Communication / Plan
-
discharge home
Assessment/Plan
-
Assessment: 84 year old female POD#3 Left distal superficial femoral artery to anterior tibial artery bypass with ipsilateral nonreversed greater saphenous vein conduit.
Plan:
ambulate
discharge
Subjective Data
-
Date of Service: February 02, 2025
doing well
no complaints
Objective Data
-
Vital Signs
Temp Pulse Resp BP Pulse Ox
97.9 F 58 16 116/52 95
02/02/25 07:00 02/02/25 07:00 02/02/25 07:00 02/02/25 07:00 02/02/25 07:00
Intake and Output
02/01/25 02/02/25 02/03/25
06:59 06:59 06:59
Intake Total 2560 / 2560 1200 / 1200
Output Total 4320 / 4320 1450 / 1450
Balance -1760 / -1760 -250 / -250
Intake:
Oral fluids 2400 / 2400 1200 / 1200
IV fluids (Total) 160 / 160
Nss 1,000 ml @ 80 mls/hr IV . 160 / 160
[id number] [facility] Rx#:[id number]
Output:
Urine, Gordon 575 / 575
Urine, Voided 3745 / 3745 1450 / 1450
Other:
Number of approximated SMALL 2
amounts of urine
Number of approximated MODERATE 1
amounts of urine
Number of approximated LARGE 1
amounts of urine
Lab Results
02/01/25 04:19
02/01/25 04:19
Calcium 9.6 mg/dl (8.4-10.2) 02/01/25 04:19
Physical Exam
-
inc c/d/i
+ graft and DP pulse
foot warm
[2025-02-02 08:32] LABS: Glucose - Point of Care 108 mg/dl (70-99)
[2025-02-02] MEDS: NOVOLOG FLEXPEN-MODERATE RESISTANCE SC (08:39)
[2025-02-02] MEDS: ORETIC 25 MG PO (09:04)
[2025-02-02] MEDS: ZESTRIL 20 MG PO (09:05)
[2025-02-02] MEDS: PLAVIX 75 MG PO (09:05)
[2025-02-02] MEDS: VITAMIN D3 (cholecalciferol) 50 MCG PO (09:05)
[2025-02-02] MEDS: HEPARIN 5000 UNITS SC (09:05)
[2025-02-02] MEDS: GLUCOTROL 5 MG PO (09:05)
--- NOTE | 2025-02-02 10:43 | CM ---
IMM completed and patient confirmed she has a ride home and no needs. CM will continue to follow for discharge planning needs.
Plan; home with no needs
[2025-02-02 11:30] VITALS: BP 140/53
[2025-02-02 11:43] LABS: Glucose - Point of Care 170 mg/dl (70-99)
[2025-02-02] MEDS: NOVOLOG FLEXPEN-MODERATE RESISTANCE 1 UNITS SC (11:55)
[2025-02-02] MEDS: MAGNESIUM OXIDE 500 MG PO (11:57)
[2025-02-02] MEDS: VISBIOME 1 CAP PO (11:57)
== END 2025-02-02 12:45 | disposition home health service (06) | DRG 253 ==
LOC: 2 SOUTH 05:51
PROVIDERS: Nurse Practitioner; ADMITTING PHYSICIAN Surgery Vascular Surgery; CONSULT PHYSICIAN Internal Medicine Critical Care Medicine; PRIMARYCARE PHYSICIAN Family Medicine
PROC: 041L09Q Bypass Left Femoral Artery to Lower Extremity Artery with Autologous Venous Tissue, Open Approach (ICD-10-PCS; 2025-01-30)
DX: T82.898A Other specified complication of vascular prosthetic devices, implants and grafts, initial encounter (principal); E87.1 Hypo-osmolality and hyponatremia; I70.222 Atherosclerosis of native arteries of extremities with rest pain, left leg; E11.51 Type 2 diabetes mellitus with diabetic peripheral angiopathy without gangrene; E11.65 Type 2 diabetes mellitus with hyperglycemia; I27.20 Pulmonary hypertension, unspecified; I50.9 Heart failure, unspecified; I11.0 Hypertensive heart disease with heart failure; E78.5 Hyperlipidemia, unspecified; M81.0 Age-related osteoporosis without current pathological fracture; Y83.1 Surgical operation with implant of artificial internal device as the cause of abnormal reaction of the patient, or of later complication, without mention of misadventure at the time of the procedure; Z90.49 Acquired absence of other specified parts of digestive tract; Z95.820 Peripheral vascular angioplasty status with implants and grafts
CPT/HCPCS: 35566; 36415; 71046; 80048; 82962; 83036; 85025; 85027; 85610; 85730; 86850; 86900; 86901; 97162; 97166

== ENCOUNTER → 2025-02-27 13:34 | Outpatient (REF) | payer MEDICARE, OTHER, SELFPAY | LOC: RAD 13:34 | PROVIDERS: ATTENDING PHYSICIAN Physician Assistant; FAMILY PHYSICIAN Family Medicine | DX: I73.9 Peripheral vascular disease, unspecified (principal) | CPT/HCPCS: 93922; 93925 ==

== ENCOUNTER → 2025-09-13 14:20 | Outpatient (REF) | payer MEDICARE, OTHER, SELFPAY | LOC: RAD 14:20 | PROVIDERS: ATTENDING PHYSICIAN Physician Assistant; FAMILY PHYSICIAN Family Medicine | DX: I73.9 Peripheral vascular disease, unspecified (principal) | CPT/HCPCS: 93922; 93925 ==